=== PATIENT | male | born 1965 | race Caucasian/White ===

== ENCOUNTER 2018-10-24 11:34 | Emergency (ER) | payer OTHER ==
--- NOTE | 2018-10-24 11:52 | ED.PDOC ---
History of Present Illness - General Stated Complaint: PAIN AND SWELLING LEFT SIDE OF MOUTH Time Seen by Provider: 10/24/18 11:47 Source: patient, RN notes reviewed Additional Information: 53 YEAR OLD PRESENTS WITH DENTAL PAIN FOR SEVERAL DAYS IN THE PAST FEW DAYS THERE HAS BEEN WORSENING OF HIS SYMPTOMS WITH INCREASING PAIN AND SWELLING ON THE LEFT SIDE OF THE JAW EXAM HYPERTENSIVE ' MILD DISTRESS FROM PAIN' ORAL EXAM THERE IS DENTAL DECAY WITH A FRACTURED LEFT LOWER PREMOLAR ASSOCIATED GINGIVAL TENDERNESS SIGNIFICANT SOFT TISSUE TENDERNESS ON THE LEFT FACE NO FEVER AND HE NOT APPEAR TOXIC - History of Present Illness Timing/Duration: 24 hours Severity: moderate Improving Factors: nothing Worsening Factors: nothing Associated Symptoms: denies symptoms Allergies/Adverse Reactions: Allergies NO KNOWN ALLERGY Allergy (Verified 10/24/18 11:52) Home Medications: Ambulatory Orders Acetamin W/Cod #3 Tab [Tylenol w/CODEINE #3] 1 ea PO Q6HR PRN #40 tab 10/24/18 Acetaminophen W/ Codeine [Tylenol W/ CODEINE #3] 1 ea PO PRN 10/24/18 Amoxicillin & Pot Clavulanate [Augmentin Tab] 875 mg PO BID 10 Days #20 tab 03/08 Amoxicillin [Amoxil] 500 mg PO Q8H 10/24/18 Review of Systems - Review of Systems Constitutional: States: no symptoms reported EENTM: States: no symptoms reported Respiratory: States: no symptoms reported Cardiology: States: no symptoms reported Gastrointestinal/Abdominal: States: no symptoms reported Genitourinary: States: no symptoms reported Musculoskeletal: States: no symptoms reported Skin: States: no symptoms reported Neurological: States: no symptoms reported Endocrine: States: no symptoms reported Hematologic/Lymphatic: States: no symptoms reported Family Medical History - Family History Father Family History: Unknown Hx Family Hypertension: Yes Physical Exam - Physical Exam General Appearance: Alert Eye Exam: bilateral normal Ears, Nose, Throat: hearing grossly normal, normal ENT inspection, abnormal TM ( R), other - SEE HPI Neck: non-tender, full range of motion, supple Respiratory: chest non-tender, lungs clear, normal breath sounds, no respiratory distress, no accessory muscle use Cardiovascular/Chest: normal peripheral pulses, regular rate, rhythm, no edema, no gallop Extremity: normal range of motion, non-tender, normal inspection 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, no motor/sensory deficits, alert, normal mood/affect, oriented x 3 Progress - Results/Orders Results/Orders: Laboratory Tests 10/24/18 12:10 Sodium 141 Potassium 4.0 Chloride 102 Carbon Dioxide 30 Anion Gap 13.0 BUN 12 Creatinine 0.82 BUN/Creatinine Ratio 14.6 Random Glucose 104 Serum Osmolality 281.3 Calcium 9.7 Total Bilirubin 0.6 AST 19 ALT 26 Alkaline Phosphatase 71 Serum Total Protein 7.4 Albumin 4.2 Globulin 3.2 Albumin/Globulin Ratio 1.3 PT WANTS TO LEAVE DOES NOT WANT TO WAIT FOR THE CBC TO COME BACK THERE HAS BEEN A DELAY DUE TO LAB MACHINE FAILURE Departure - Departure Clinical Impression: Dental abscess, Dental caries, Chronic dental infection, Chronic dental pain Time of Disposition: 14:31 Disposition: Discharge to Home or Self Care Condition: Good Referrals: Chadwick Loredo III, MD [Primary Care Provider] - 1-2 Weeks Prescriptions: Acetamin W/Cod #3 Tab [Tylenol w/CODEINE #3] 1 ea PO Q6HR PRN #40 tab PRN Reason: Mild To Moderate Pain Amoxicillin & Pot Clavulanate [Augmentin Tab] 875 mg PO BID 10 Days #20 tab Home Medications: Ambulatory Orders Acetamin W/Cod #3 Tab [Tylenol w/CODEINE #3] 1 ea PO Q6HR PRN #40 tab 10/24/18 Acetaminophen W/ Codeine [Tylenol W/ CODEINE #3] 1 ea PO PRN 10/24/18 Amoxicillin & Pot Clavulanate [Augmentin Tab] 875 mg PO BID 10 Days #20 tab 03/08 Amoxicillin [Amoxil] 500 mg PO Q8H 10/24/18
[2018-10-24 11:58] VITALS: TEMP 98.7
[2018-10-24] MEDS ORDERED: AMPICILLIN & SULBACTAM SODIUM 1.5 GM in SODIUM CHL 0.9% 50ML MIN-BAG+ 50 ML IVPB ONE (11:58)
[2018-10-24] MEDS ORDERED: KETOROLAC TROMETHAMINE INJ 30 MG/ML VIAL IV ONE (11:59)
[2018-10-24] MEDS ORDERED: DEXAMETHASONE INJ 10 MG/ML VIAL IV ONE (11:59)
[2018-10-24] MEDS ORDERED: AMPICILLIN & SULBACTAM SODIUM 1.5 GM VIAL ONE (12:13)
[2018-10-24] MEDS ORDERED: SODIUM CHL 0.9% 50ML MIN-BAG+ 50 ML IVPB ONE (12:13)
[2018-10-24 12:57] VITALS: BP 140/90; O2SAT 99
== END 2018-10-24 14:42 | disposition home or self-care (01) ==
LOC: ER 11:34
DX: K04.7 Periapical abscess without sinus (principal); K02.9 Dental caries, unspecified; S02.5XXA Fracture of tooth (traumatic), initial encounter for closed fracture; X58.XXXA Exposure to other specified factors, initial encounter; Y92.9 Unspecified place or not applicable
CPT/HCPCS: 80053; 85025; J0295; J1100; J1885; J7050